=== PATIENT | female | born 1985 | race Two or more races ===

== ENCOUNTER 2017-07-25 20:06 | Inpatient (IN) | payer OTHER ==
[~2017-07-25] VITALS: Ht 170.2 cm; Wt 73.9 kg
[2017-07-25] MEDS ORDERED: ATABEX EC CAPL1 EACH (20:23)
[2017-07-25] MEDS ORDERED: IRON18 MG PO (22:59)
[2017-07-27] MEDS ORDERED: IMODIUM A-D2 M2 PO (08:32)
[2017-07-27] MEDS ORDERED: PEPCID20 MG PO (08:32)
== END 2017-07-27 10:53 | disposition home or self-care (01) | DRG 781 ==
LOC: ER 20:06 → LDR 21:53 → OB/GYN 07-26 10:43
PROC: 4A1HXCZ Monitoring of Products of Conception, Cardiac Rate, External Approach (ICD-10-PCS; principal; 2017-07-25)
DX: O99.613 Diseases of the digestive system complicating pregnancy, third trimester (principal); K52.89 Other specified noninfective gastroenteritis and colitis; E86.0 Dehydration; Z3A.31 31 weeks gestation of pregnancy

== ENCOUNTER 2017-09-03 06:01 | Inpatient (IN) | payer OTHER ==
[~2017-09-03] VITALS: Ht 170.2 cm; Wt 75.7 kg
[~2017-09-03 06:01] MED LIST: ATABEX EC CAPL1 EACH; IMODIUM A-D2 M2 PO; IRON18 MG PO; PEPCID20 MG PO
== END 2017-09-05 13:37 | disposition home or self-care (01) | DRG 775 ==
LOC: LDR 06:01 → SURG-SUITE 17:21
PROC: 0KQM0ZZ Repair Perineum Muscle, Open Approach (ICD-10-PCS; principal; 2017-09-03)
PROC: 10E0XZZ Delivery of Products of Conception, External Approach (ICD-10-PCS; 2017-09-03)
PROC: 0UQMXZZ Repair Vulva, External Approach (ICD-10-PCS; 2017-09-03)
PROC: 4A1HXCZ Monitoring of Products of Conception, Cardiac Rate, External Approach (ICD-10-PCS; 2017-09-03)
DX: O70.1 Second degree perineal laceration during delivery (principal); O71.82 Other specified trauma to perineum and vulva; Z37.0 Single live birth; Z3A.37 37 weeks gestation of pregnancy